=== PATIENT | male | born 1965 | race Caucasian/White ===

== ENCOUNTER 2018-04-13 14:47 | Inpatient (IN) | payer OTHER ==
--- NOTE | 2018-04-13 16:20 | PN ---
[facility] Progress Note Note: patient stated that he is in suboxone maintenance program x year on 8-2 mg tid last dose early today patient is on prescription klonopin monthly taking klonopin po daily patient wants to be detoxed off from alcohol that drinking alcohol becomes out of control patient wants to return to suboxone program and klonopin prescription for anxiety
[2018-04-13 19:09] VITALS: BMI 25.9
[2018-04-13] MEDS ORDERED: MELATONIN 5 MG TABLETS PO PRN (22:00)
--- NOTE | 2018-04-13 22:53 | HP ---
CIWA Score - CIWA Score Nausea/Vomitin Muscle Tremors: 2 Anxiety: 3 Agitation: 4-Moderately Restless Paroxysmal Sweats: 2 Orientation: 0-Oriented Tacttile Disturbances: 1-Very Mild Itch/Numbness Auditory Disturbances: 1-Very Mild Visual Disturbances: 0-None Headache: 2-Mild CIWA-Ar Total Score: 18 Admission ROS S - HPI Chief Complaint: alcohol withdrawal symptoms Allergies/Adverse Reactions: Allergies Allergy/AdvReac Type Severity Reaction Status Date / Time Fish Containing Products Allergy Intermediate Hives Verified 04/13/18 19:33 FISH Allergy Intermediate Hives Uncoded 04/13/18 19:33 History of Present Illness: 52 yo male with hx of alcohol, heroin and cocaine dependence is here seeking alcohol detox. Reports currently linked to [facility] on Suboxone 8mg qd maintenance. Reports hx of anxiety and depression. Denies suicidal / homicidal ideation or hx of suicide attempt. Longest period of time one year. Reference #: [id number] Others' Prescriptions Patient Name: Thomas Sykes Date: 1965 Address: [address] [place] [address] Sex: Male Rx Written Rx Dispensed Drug Quantity Days Supply Prescriber Name 04/11/2018 04/12/2018 dextroamp-amphetamin 10 mg tab 60 30 Ashley Carvajal NP 04/11/2018 04/11/2018 clonazepam 1 mg tablet 60 30 Ashley Carvajal NP 03/25/2018 04/04/2018 suboxone 8 mg-2 mg sl film 90 30 Christy Montana NP 03/14/2018 03/14/2018 dextroamp-amphetamin 10 mg tab 60 30 Ashley Carvajal NP 03/01/2018 03/08/2018 suboxone 8 mg-2 mg sl film 90 30 Christy Montana NP 03/04/2018 03/08/2018 clonazepam 1 mg tablet 60 30 Ashley Carvajal NP 01/31/2018 01/31/2018 suboxone 8 mg-2 mg sl film 90 30 SwiChristy tyler NP 01/31/2018 01/31/2018 clonazepam 1 mg tablet 60 30 Ashley Carvajal [employer] Patient Name: Thomas Sykes Date: 1965 Address: [address] [place] [address] Sex: Male Rx Written Rx Dispensed Drug Quantity Days Supply Prescriber Name 03/02/2018 03/02/2018 chlordiazepoxide 10 mg capsule 36 4 Jacob Whitt MD Patient Name: Thomas Sykes Date: 1965 Address: [address] [facility] [address] [place] [address] Sex: Male Rx Written Rx Dispensed Drug Quantity Days Supply Prescriber Name 12/28/2017 12/28/2017 suboxone 8 mg-2 mg sl film 90 30 Christy Montana [employer] 12/10/2017 12/10/2017 clonazepam 1 mg tablet 60 30 Ashley Carvajal [employer] 11/18/2017 11/18/2017 suboxone 8 mg-2 mg sl film 42 14 Lamonte Arora) 09/14/2017 09/14/2017 suboxone 8 mg-2 mg sl film 21 7 Lamonte Arora) 06/30/2017 07/01/2017 suboxone 8 mg-2 mg sl film 60 30 Lamonte Arora) 06/02/2017 06/02/2017 suboxone 8 mg-2 mg sl film 60 30 Christy Montana [employer] 05/05/2017 05/05/2017 suboxone 8 mg-2 mg sl film 60 30 Lamonte Arora) Patient Name: Thomas Sykes Date: 1965 Address: [address] [place] [address] Sex: Male Rx Written Rx Dispensed Drug Quantity Days Supply Prescriber Name 11/17/2017 11/19/2017 oxycodone-acetaminophen 5-325 mg tab 12 3 Vincenzo Avalos (DO) Exam Limitations: No Limitations - Ebola screening Have you traveled outside of the country in the last 21 days: No (N) Have you had contact with anyone from an Ebola affected area: No Have you been sick,other than usual withdrawal symptoms: No Do you have a fever: No - Review of Systems Constitutional: Chills, Loss of Appetite, Changes in sleep, Unintentional Wgt. Loss EENT: reports: No Symptoms Reported Respiratory: reports: No Symptoms reported Cardiac: reports: No Symptoms Reported GI: reports: Diarrhea, Nausea, Poor Appetite, Vomiting Musculoskeletal: reports: Back Pain, Joint Pain Integumentary: reports: No Symptoms Reported Neuro: reports: Headache Endocrine: reports: No Symptoms Reported Hematology: reports: No Symptoms Reported Psychiatric: reports: Orientated x3, Agitated, Anxious Other Systems: Reviewed and Negative Patient History - Patient Medical History Hx Anemia: No Hx Asthma: No Hx Chronic Obstructive Pulmonary Disease (COPD): No Hx Cancer: No Hx Cardiac Disorders: No Hx Congestive Heart Failure: No Hx Hypertension: No Hx Hypercholesterolemia: No Hx Pacemaker: No HX Cerebrovascular Accident: No Hx Seizures: No Hx Dementia: No Hx Diabetes: No Hx Gastrointestinal Disorders: No Hx Genitourinary Disorders: No Hx Sexually Transmitted Disorders: No Hx Renal Disease (ESRD): No Hx Thyroid Disease: No Hx Human Immunodeficiency Virus (HIV): No (last tested one year ago ) Hx Hepatitis C: No Hx Depression: Yes Hx Suicide Attempt: No Hx Bipolar Disorder: No Hx Schizophrenia: No - Patient Surgical History Past Surgical History: No Hx Neurologic Surgery: No Hx Cataract Extraction: No Hx Cardiac Surgery: No Hx Lung Surgery: No Hx Breast Surgery: No Hx Breast Biopsy: No Hx Abdominal Surgery: No Hx Appendectomy: No Hx Cholecystectomy: No Hx Genitourinary Surgery: No Hx Section: No Hx Orthopedic Surgery: No Anesthesia Reaction: No - PPD History Previous Implant?: No Documented Results: Negative w/o proof Implanted On Prior R Admission?: No PPD to be Administered?: Yes - Smoking Cessation Smoking history: Current every day smoker Have you smoked in the past 12 months: Yes Aproximately how many cigarettes per day: 20 Hx Chewing Tobacco Use: No Initiated information on smoking cessation: Yes 'Breaking Loose' booklet given: 04/13/18 - Substance & Tx. History Hx Alcohol Use: Yes Hx Substance Use: Yes Substance Use Type: Alcohol, Cocaine, Opiates Hx Substance Use Treatment: Yes (Laura Audie 1 year ago ) - Substances Abused Alcohol Route: Oral Frequency: Daily Amount used: 1pt vodka Age of first use: 17 Date of Last Use: 04/13/18 Heroin Route: Inhalation Frequency: Daily Amount used: 5bags Age of first use: 29 Date of Last Use: 04/13/18 Cocaine Route: Smoking Frequency: Daily Amount used: 5bags Age of first use: 20 Date of Last Use: 04/13/18 Family Disease History - Family Disease History Family History: Denies Admission Physical Exam [facility] - Vital Signs Vital Signs: Vital Signs - 24 hr 04/13/18 19:08 Temperature 97.7 F Pulse Rate 83 Respiratory 18 Rate Blood Pressure 115/72 - Physical General Appearance: Yes: Disheveled, Mild Distress, Irritable, Anxious HEENTM: Yes: Hearing grossly Normal, Normal ENT Inspection, Normocephalic, Normal Voice, TONY, Pharynx Normal, Tm's normal Respiratory: Yes: Chest Non-Tender, Lungs Clear, Normal Breath Sounds, No Respiratory Distress, No Accessory Muscle Use Neck: Yes: Within Normal Limits Breast: Yes: Breast Exam Deferred Cardiology: Yes: Regular Rhythm, Regular Rate Abdominal: Yes: Normal Bowel Sounds, Non Tender, Flat Genitourinary: Yes: Within Normal Limits Back: Yes: Normal Inspection Musculoskeletal: Yes: full range of Motion, Gait Steady, Pelvis Stable Extremities: Yes: Normal Capillary Refill, Normal Inspection, Normal Range of Motion, Non-Tender Neurological: Yes: wash tank tender II-XII NML intact, Fully Oriented, Motor Strength 5/5, Depressed Affect Integumentary: Yes: Normal Color, Warm, Diaphoresis Lymphatic: Yes: Within Normal Limits - Diagnostic (1) Opioid dependence on agonist therapy Current Visit: Yes Status: Chronic Comment: On Suboxone 8mg TID (2) Cocaine dependence Current Visit: Yes Status: Acute Qualifiers: Substance use status: uncomplicated Qualified Code(s): F14.20 - Cocaine dependence, uncomplicated (3) Anxious mood Current Visit: Yes Status: Acute (4) Alcohol dependence with withdrawal Current Visit: Yes Status: Acute Qualifiers: Complication of substance-induced condition: uncomplicated Qualified Code(s ): F10.230 - Alcohol dependence with withdrawal, uncomplicated Cleared for Admission [facility] - Detox or Rehab [facility] Level of Care: Medically Managed Detox Regimen/Protocol: Librium [facility] Breath Alcohol Content Breath Alcohol Content: 0 Urine Drug Screen - Results Drug Screen Negative: No Urine Drug Screen Results: GALDINO-Cocaine, OPI-Opiates
[2018-04-13] MEDS ORDERED: MAGNESIUM HYDROX 2400MG/30ML ORAL SUSPENSION 30 ML CUP PO PRN (22:59)
[2018-04-13] MEDS ORDERED: MAG HYDROX/AL HYDROX/SIMETH 30 ML UNIT-DOSE CUP PO PRN (22:59)
[2018-04-13] MEDS ORDERED: NICOTINE POLACRILEX 2 MG GUM BC PRN (22:59)
[2018-04-13] MEDS ORDERED: hydrOXYzine PAMOATE 50 MG CAPSULE (FP) PO PRN (22:59)
[2018-04-13] MEDS ORDERED: IBUPROFEN 400 MG TABLET (FP) PO PRN (22:59)
[2018-04-13] MEDS ORDERED: MENTHOL/PHENOL 1 EACH UD MM PRN (22:59)
[2018-04-13] MEDS ORDERED: MAGNESIUM CITRATE 300 ML BOTTLE PO PRN (22:59)
[2018-04-13] MEDS ORDERED: ACETAMINOPHEN 325 MG TABLET (FP) PO PRN (22:59)
[2018-04-13] MEDS ORDERED: guaiFENesin/D-METHORPHAN HB 10 ML UNIT-DOSE CUPS PO PRN (22:59)
[2018-04-13] MEDS ORDERED: P-EPHED 60MG/TRIPROLIDI 2.5MG TABLET PO PRN (22:59)
[2018-04-13] MEDS ORDERED: LOPERAMIDE HCL 2 MG CAPSULE PO PRN (22:59)
[2018-04-13] MEDS: chlordiazePOXIDE HCL 25 MG CAPSULE PO SCH (23:27)
[2018-04-14 02:16] LABS: URINE APPEARANCE SLCLOUDY; URINE BILIRUBIN NEGATIVE (<2.0 mg/dL); URINE COLOR YELLOW; URINE GLUCOSE (UA) NEGATIVE (NEGATIVE); URINE KETONE NEGATIVE (NEGATIVE); URINE NITRITE NEGATIVE (NEGATIVE); URINE PROTEIN NEGATIVE (NEGATIVE); URINE UROBILINOGEN NEGATIVE mg/dL (0.2-1.0)
[2018-04-14 02:37] LABS: URINE LEUK ESTERASE 1+ (NEGATIVE)
[2018-04-14 02:41] LABS: URINE BACTERIA MODERATE /hpf (NONE SEEN); URINE HYALINE CAST 1 /lpf; URINE MUCUS RARE
[2018-04-14] MEDS: chlordiazePOXIDE HCL 25 MG CAPSULE PO SCH ×4 (06:29→22:31)
[2018-04-14] MEDS: BUPRENORPHINE/NALOXONE 8 MG/2 MG FILM PACKET SL SCH ×3 (07:49→22:31)
[2018-04-14 10:13] LABS: HEMATOCRIT 42.2 % (35.4-49); HEMOGLOBIN 14.2 GM/dL (11.7-16.9); MCHC 33.7 g/dl (32.0-35.9); MEAN CELL VOLUME 86.1 fl (80-96); MEAN PLT VOLUME 7.4 fl (7.5-11.1); PLATELET COUNT 258 K/MM3 (134-434); RDW 14.3 % (11.9-15.9); WHITE BLOOD COUNT 5.4 K/mm3 (4.0-10.0)
[2018-04-14 10:55] LABS: CHLORIDE 110 mmol/L (98-107); POTASSIUM 3.9 mmol/L (3.5-5.1); SODIUM 145 mmol/L (136-145)
[2018-04-14 11:29] LABS: ALBUMIN 3.1 g/dl (3.4-5.0); ALK PHOS 103 U/L (45-117); ANION GAP 9 (8-16); BILIRUBIN,TOTAL 0.4 mg/dL (0.2-1.0); BLOOD UREA NITROGEN 25 mg/dL (7-18); CALCIUM 8.5 mg/dL (8.5-10.1); CO2 26 mmol/L (21-32); CREATININE 1.1 mg/dL (0.7-1.3); GLUCOSE,RANDOM 74 mg/dL (74-106); SGOT/AST 17 U/L (15-37); SGPT/ALT 22 U/L (12-78); TOT PROT 5.7 g/dl (6.4-8.2)
[2018-04-14] MEDS: PRENATAL VITAMINS W/ FOLIC ACID TABLET (FP) PO SCH (12:03)
[2018-04-14] MEDS: NICOTINE 21 MG/24 HOURS TOPICAL PATCH TD SCH (12:03)
[2018-04-14] MEDS: chlordiazePOXIDE HCL 25 MG CAPSULE PO PRN ×2 (12:40→19:51)
--- NOTE | 2018-04-14 13:03 | PN ---
[facility] CIWA - CIWA Score Nausea/Vomitin-No Nausea/No Vomiting Muscle Tremors: 3 Anxiety: 3 Agitation: 1-Slight > Activity Paroxysmal Sweats: 3 Orientation: 0-Oriented Tacttile Disturbances: 3-Moderate Itch/Numb/Burn Auditory Disturbances: 1-Very Mild Visual Disturbances: 2-Mild Sensitivity Headache: 0-None Present CIWA-Ar Total Score: 16 B[facility] Progress Note (SOAP) Subjective: Chills, Fatigue, Sweating, Interrupted Sleep, Tremors. Objective: PATIENT A & O X 3, OBSERVED AMBULATING ON UNIT. NO ACUTE DISTRESS. 04/14/18 13:01 Vital Signs Temperature 97.3 F L 04/14/18 10:18 Pulse Rate 54 L 04/14/18 10:18 Respiratory Rate 16 04/14/18 10:18 Blood Pressure 100/61 04/14/18 10:18 O2 Sat by Pulse Oximetry (%) Laboratory Tests 04/13/18 04/14/18 04/14/18 22:36 07:30 07:30 WBC 5.4 RBC 4.90 Hgb 14.2 Hct 42.2 MCV 86.1 MCH 29.0 MCHC 33.7 RDW 14.3 Plt Count 258 MPV 7.4 L Sodium Potassium Chloride Carbon Dioxide Anion Gap BUN Creatinine Creat Clearance w eGFR Random Glucose Calcium Total Bilirubin AST ALT Alkaline Phosphatase Total Protein Albumin Urine Color Yellow Urine Appearance Slcloudy Urine pH 5.0 Ur Specific [place] 1.020 Urine Protein Negative Urine Glucose (UA) Negative Urine Ketones Negative Urine Blood 2+ H Urine Nitrite Negative Urine Bilirubin Negative Urine Urobilinogen Negative Ur Leukocyte Esterase 1+ H Urine WBC (Auto) 28 Urine RBC (Auto) 88 Urine Bacteria Moderate Hyaline Casts 1 Urine Mucus Rare RPR Titer HIV 1&2 Antibody Screen Negative HIV P24 Antigen Negative 04/14/18 04/14/18 07:30 07:30 WBC RBC Hgb Hct MCV MCH MCHC RDW Plt Count MPV Sodium 145 Potassium 3.9 Chloride 110 H Carbon Dioxide 26 Anion Gap 9 BUN 25 H Creatinine 1.1 Creat Clearance w eGFR > 60 Random Glucose 74 Calcium 8.5 Total Bilirubin 0.4 AST 17 ALT 22 Alkaline Phosphatase 103 Total Protein 5.7 L Albumin 3.1 L Urine Color Urine Appearance Urine pH Ur Specific [place] Urine Protein Urine Glucose (UA) Urine Ketones Urine Blood Urine Nitrite Urine Bilirubin Urine Urobilinogen Ur Leukocyte Esterase Urine WBC (Auto) Urine RBC (Auto) Urine Bacteria Hyaline Casts Urine Mucus RPR Titer Nonreactive HIV 1&2 Antibody Screen HIV P24 Antigen LABS NOTED. Assessment: 04/14/18 13:01 WITHDRAWAL SYMPTOMS. Plan: CONTINUE DETOX. INCREASE DAILY PO FLUID INTAKE. REPEAT UA FOR ADMISSION UA ABNORMALITIES.
--- NOTE | 2018-04-14 14:26 | EKG ---
Test Reason : Blood Pressure : / mmHG Vent. Rate : 065 BPM Atrial Rate : 065 BPM P-R Int : 138 ms QRS Dur : 090 ms QT Int : 442 ms P-R-T Axes : 070 040 017 degrees QTc Int : 459 ms NORMAL SINUS RHYTHM NORMAL ECG NO PREVIOUS ECGS AVAILABLE Confirmed by JOVITA GÓMEZ MD ([id number]) on 04/14/2018 2:26:24 PM Referred By: Confirmed By:JOVITA GÓMEZ MD
--- NOTE | 2018-04-14 15:10 | CONSULT ---
[facility] Psychiatric Consult - Data Date of interview: 04/14/18 Admission source: [facility] Identifying data: Patient is a 52 year old single male, without kids, unemployed (denies receiving financial assistance) and currently homeless. This is patient's first admission to detox at [facility]. Pt. admitted to for alcohol and opiate dependence. Substance Abuse History: Smoking Cessation. Smoking history: Current every day smoker. Have you smoked in the past 12 months: Yes. Aproximately how many cigarettes per day: 20. Hx Chewing Tobacco Use: No. Initiated information on smoking cessation: Yes. 'Breaking Loose' booklet given: 04/13/18. - Substance & Tx. History. Hx Alcohol Use: Yes. Hx Substance Use: Yes. Substance Use Type : Alcohol, Cocaine, Opiates. Hx Substance Use Treatment: Yes (Laura Bronson 1 year ago ). - Substances Abused. Alcohol. Route: Oral. Frequency: Daily. Amount used: 1pt vodka. Age of first use: 17. Date of Last Use: 04/13/18. * * Heroin. Route: Inhalation. Frequency: Daily. Amount used: 5bags. Age of first use: 29. Date of Last Use: 04/13/18. Cocaine. Route: Smoking. Frequency: Daily. Amount used: 5bags. Age of first use: 20. Date of Last Use : 04/13/18 Medical History: Denies. Psychiatric History: Patient denies h/o psychiatric hospitalization, outpatient care, and suicide attempt. Physical/Sexual Abuse/Trauma History: Denies. Mental Status Exam - Mental Status Exam Alert and Oriented to: Time, Place, Person Cognitive Function: Good Patient Appearance: Well Groomed Mood: Withdrawn Affect: Mood Congruent Patient Behavior: Fatigued, Asleep (Patient to be awaken and complete interview. ) Speech Pattern: Appropriate Voice Loudness: Moderately Soft/Quiet Thought Process: Intact, Goal Oriented Thought Disorder: Not Present Hallucinations: Denies Suicidal Ideation: Denies Homicidal Ideation: Denies Insight/Judgement: Poor Sleep: Fair Appetite: Good Muscle strength/Tone: Normal Gait/Station: Normal Psychiatric Findings - Problem List ([place] 1, 2,3) (1) Alcohol dependence with withdrawal Current Visit: Yes Status: Acute Qualifiers: Complication of substance-induced condition: uncomplicated Qualified Code(s ): F10.230 - Alcohol dependence with withdrawal, uncomplicated (2) Cocaine dependence Current Visit: Yes Status: Acute Qualifiers: Substance use status: uncomplicated Qualified Code(s): F14.20 - Cocaine dependence, uncomplicated (3) Opioid dependence on agonist therapy Current Visit: Yes Status: Chronic Comment: On Suboxone 8mg TID - Initial Treatment Plan Initial Treatment Plan: Psychoeducation provided. Detoxification in progress. Observation.
[2018-04-14] MEDS ORDERED: THIAMINE HCL 100 MG TABLET (FP) PO SCH (22:00)
[2018-04-15] MEDS: chlordiazePOXIDE HCL 25 MG CAPSULE PO SCH ×2 (07:22→10:28)
[2018-04-15] MEDS: BUPRENORPHINE/NALOXONE 8 MG/2 MG FILM PACKET SL SCH (07:24)
[2018-04-15 09:21] VITALS: BP 103/59; PULSE 63; TEMP 97.8
[2018-04-15] MEDS: NICOTINE 21 MG/24 HOURS TOPICAL PATCH TD SCH (10:28)
[2018-04-15] MEDS: PRENATAL VITAMINS W/ FOLIC ACID TABLET (FP) PO SCH (10:28)
--- NOTE | 2018-04-15 16:34 | PN ---
[facility] CIWA - CIWA Score Nausea/Vomitin-No Nausea/No Vomiting Muscle Tremors: 2 Anxiety: 4-Mod. Anxious/Guarded Agitation: 4-Moderately Restless Paroxysmal Sweats: 3 Orientation: 0-Oriented Tacttile Disturbances: 2-Mild Itch/Numbness/Burn Auditory Disturbances: 0-None Visual Disturbances: 0-None Headache: 0-None Present CIWA-Ar Total Score: 15 BHS Progress Note (SOAP) Subjective: Sweating, Fatigue, Anxious, Tremors. Objective: PATIENT A & O X 3, OBSERVED AMBULATING ON UNIT. NO ACUTE DISTRESS. 04/15/18 16:33 Vital Signs Temperature 97.8 F 04/15/18 09:20 Pulse Rate 63 04/15/18 09:20 Respiratory Rate 18 04/15/18 09:20 Blood Pressure 103/59 04/15/18 09:20 O2 Sat by Pulse Oximetry (%) Laboratory Tests 04/13/18 04/14/18 04/14/18 22:36 07:30 07:30 WBC 5.4 RBC 4.90 Hgb 14.2 Hct 42.2 MCV 86.1 MCH 29.0 MCHC 33.7 RDW 14.3 Plt Count 258 MPV 7.4 L Sodium Potassium Chloride Carbon Dioxide Anion Gap BUN Creatinine Creat Clearance w eGFR Random Glucose Calcium Total Bilirubin AST ALT Alkaline Phosphatase Total Protein Albumin Urine Color Yellow Urine Appearance Slcloudy Urine pH 5.0 Ur Specific [place] 1.020 Urine Protein Negative Urine Glucose (UA) Negative Urine Ketones Negative Urine Blood 2+ H Urine Nitrite Negative Urine Bilirubin Negative Urine Urobilinogen Negative Ur Leukocyte Esterase 1+ H Urine WBC (Auto) 28 Urine RBC (Auto) 88 Urine Bacteria Moderate Hyaline Casts 1 Urine Mucus Rare RPR Titer HIV 1&2 Antibody Screen Negative HIV P24 Antigen Negative 04/14/18 04/14/18 07:30 07:30 WBC RBC Hgb Hct MCV MCH MCHC RDW Plt Count MPV Sodium 145 Potassium 3.9 Chloride 110 H Carbon Dioxide 26 Anion Gap 9 BUN 25 H Creatinine 1.1 Creat Clearance w eGFR > 60 Random Glucose 74 Calcium 8.5 Total Bilirubin 0.4 AST 17 ALT 22 Alkaline Phosphatase 103 Total Protein 5.7 L Albumin 3.1 L Urine Color Urine Appearance Urine pH Ur Specific [place] Urine Protein Urine Glucose (UA) Urine Ketones Urine Blood Urine Nitrite Urine Bilirubin Urine Urobilinogen Ur Leukocyte Esterase Urine WBC (Auto) Urine RBC (Auto) Urine Bacteria Hyaline Casts Urine Mucus RPR Titer Nonreactive HIV 1&2 Antibody Screen HIV P24 Antigen LABS NOTED. Assessment: 04/15/18 16:34 WITHDRAWAL SYMPTOMS. Plan: CONTINUE DETOX.
--- NOTE | 2018-04-15 17:06 | DS ---
[facility] Detox Discharge Summary Admission Date: 04/13/18 Discharge Date: 04/15/18 - History Present History: Alcohol Dependence, Cocaine Dependence, Opioid Dependence Additional Comments: PATIENT DOES NOT WISH TO STAY TO COMPLETE DETOX REGIMEN. RISKS OF LEAVING DETOX UNIT AGAINST MEDICAL ADVICE AND PRIOR TO COMPLETION OF DETOX REGIMEN EXPLAINED TO PATIENT. PATIENT ADVISED TO GO IMMEDIATELY TO NEAREST ER SHOULD ANY INTOLERABLE DETOX SYMPTOMS DEVELOP AT ANY TIME. PATIENT LEFT DETOX UNIT IN STABLE MEDICAL CONDITION. Pertinent Past History: Anxiety, History of Suboxone Maintenance Therapy. - Physical Exam Results Vital Signs: Vital Signs Temperature 97.8 F 04/15/18 09:20 Pulse Rate 63 04/15/18 09:20 Respiratory Rate 18 04/15/18 09:20 Blood Pressure 103/59 04/15/18 09:20 O2 Sat by Pulse Oximetry (%) Pertinent Admission Physical Exam Findings: WITHDRAWAL SYMPTOMS. Laboratory Tests 04/13/18 04/14/18 04/14/18 22:36 07:30 07:30 WBC 5.4 RBC 4.90 Hgb 14.2 Hct 42.2 MCV 86.1 MCH 29.0 MCHC 33.7 RDW 14.3 Plt Count 258 MPV 7.4 L Sodium Potassium Chloride Carbon Dioxide Anion Gap BUN Creatinine Creat Clearance w eGFR Random Glucose Calcium Total Bilirubin AST ALT Alkaline Phosphatase Total Protein Albumin Urine Color Yellow Urine Appearance Slcloudy Urine pH 5.0 Ur Specific [place] 1.020 Urine Protein Negative Urine Glucose (UA) Negative Urine Ketones Negative Urine Blood 2+ H Urine Nitrite Negative Urine Bilirubin Negative Urine Urobilinogen Negative Ur Leukocyte Esterase 1+ H Urine WBC (Auto) 28 Urine RBC (Auto) 88 Urine Bacteria Moderate Hyaline Casts 1 Urine Mucus Rare RPR Titer HIV 1&2 Antibody Screen Negative HIV P24 Antigen Negative 04/14/18 04/14/18 07:30 07:30 WBC RBC Hgb Hct MCV MCH MCHC RDW Plt Count MPV Sodium 145 Potassium 3.9 Chloride 110 H Carbon Dioxide 26 Anion Gap 9 BUN 25 H Creatinine 1.1 Creat Clearance w eGFR > 60 Random Glucose 74 Calcium 8.5 Total Bilirubin 0.4 AST 17 ALT 22 Alkaline Phosphatase 103 Total Protein 5.7 L Albumin 3.1 L Urine Color Urine Appearance Urine pH Ur Specific [place] Urine Protein Urine Glucose (UA) Urine Ketones Urine Blood Urine Nitrite Urine Bilirubin Urine Urobilinogen Ur Leukocyte Esterase Urine WBC (Auto) Urine RBC (Auto) Urine Bacteria Hyaline Casts Urine Mucus RPR Titer Nonreactive HIV 1&2 Antibody Screen HIV P24 Antigen LABS NOTED. - Treatment Hospital Course: Detoxed Safely - Diagnosis (1) Alcohol dependence with withdrawal Status: Acute Qualifiers: Complication of substance-induced condition: uncomplicated Qualified Code(s ): F10.230 - Alcohol dependence with withdrawal, uncomplicated (2) Anxious mood Status: Acute (3) Cocaine dependence Status: Acute Qualifiers: Substance use status: uncomplicated Qualified Code(s): F14.20 - Cocaine dependence, uncomplicated (4) Opioid dependence on agonist therapy Status: Chronic - AMA Did Patient Leave Against Medical Advice: Yes (PATIENT DID NOT WISH TO REMAIN TO COMPLETE DETOX REGIMEN.)
[2018-04-15] MEDS ORDERED: chlordiazePOXIDE 5 MG CAPSULE PO SCH (23:00)
[2018-04-16] MEDS ORDERED: chlordiazePOXIDE HCL 10 MG CAPSULE PO SCH (23:00)
== END 2018-04-15 11:59 | disposition left against medical advice (07) | DRG 770 ==
LOC: YASAS 14:47 → Y6N 19:15 → Y3N 19:47
PROVIDERS: ADMIT Surgery; ATTEND Surgery
PROC: HZ2ZZZZ Detoxification Services for Substance Abuse Treatment (ICD-10-PCS; principal; 2018-04-13)
DX: F10.230 Alcohol dependence with withdrawal, uncomplicated (principal); F11.20 Opioid dependence, uncomplicated; F14.20 Cocaine dependence, uncomplicated; F32.9 Major depressive disorder, single episode, unspecified
CPT/HCPCS: 36415; 80053; 81003; 81015; 85027; 86593; 87389; 93005; 93010

== ENCOUNTER 2019-01-25 12:39 | Inpatient (IN) | payer OTHER ==
[2019-01-25 14:07] VITALS: BMI 27.3
--- NOTE | 2019-01-25 14:51 | HP ---
COWS - Scale Resting Pulse: 0= [place] 80 or Below Sweatin= Chills/Flushing Restless Observation: 3= Extraneous Movement Pupil Size: 1= Pupils >than Normal Bone or Joint Aches: 2= Severe Diffuse Aches Runny Nose/ Eye Tearin= Runny Nose/Eyes GI Upset > 30mins: 2= Nausea/Diarrhea Tremor Observation: 2= Slight Tremor Visible Yawning Observation: 2= >3x During Session Anxiety or Irritability: 2=Irritable/Anxious Goose Flesh Skin: 0=Smooth Skin COWS Score: 17 CIWA Score Nausea/Vomitin Muscle Tremors: 3 Anxiety: 3 Agitation: 3 Paroxysmal Sweats: 1-Minimal Palms Moist Orientation: 0-Oriented Tacttile Disturbances: 1-Very Mild Itch/Numbness Auditory Disturbances: 1-Very Mild Visual Disturbances: 0-None Headache: 2-Mild CIWA-Ar Total Score: 16 - Admission Criteria OASAS Guidelines: Admission for Medically Managed Detox: Requires at least one of the followin. CIWA greater than 12 2. Seizures within the past 24 hours 3. Delirium tremens within the past 24 hours 4. Hallucinations within the past 24 hours 5. Acute intervention needed for co occurring medical disorder 6. Acute intervention needed for co occurring psychiatric disorder 7. Severe withdrawal that cannot be handled at a lower level of care (continued vomiting, continued diarrhea, abnormal vital signs) requiring intravenous medication and/or fluids 8. Admission ROS S - [facility] Chief Complaint: I need help to stop using heroin,alcohol,xanax,cocaine,street methadone Allergies/Adverse Reactions: Allergies Allergy/AdvReac Type Severity Reaction Status Date / Time Fish Containing Products Allergy Intermediate Hives Verified 01/25/19 14:00 FISH Allergy Intermediate Hives Uncoded 01/25/19 14:00 History of Present Illness: this 53 years old male with heroin,alcohol,cocaine,xanax,street methadone, withdrawal symptom,need help for detox multiple admissions in detox but keep relapsing last treatment [facility] 04/13/18 to 04/15/18 not completed weight loss nicotine dependence 1 pack/day,does not want nicotine replacement syncope abrasion of right leg longest period of sobriety 3 years plan for rehab after detox Exam Limitations: No Limitations - Ebola screening Have you traveled outside of the country in the last 21 days: No (N) Have you had contact with anyone from an Ebola affected area: No Do you have a fever: No - Review of Systems Constitutional: Chills, Loss of Appetite, Malaise, Night Sweats, Changes in sleep, Unintentional Wgt. Loss EENT: reports: Tearing, Nose Congestion Respiratory: reports: No Symptoms reported Cardiac: reports: No Symptoms Reported GI: reports: Diarrhea, Nausea, Poor Appetite, Vomiting, Abdominal cramping : reports: No Symptoms Reported Musculoskeletal: reports: Back Pain, Joint Pain, Muscle Pain Integumentary: reports: Dryness Neuro: reports: Headache, Tremors Endocrine: reports: No Symptoms Reported Hematology: reports: No Symptoms Reported Psychiatric: reports: No Sypmtoms Reported, Judgement Intact, Mood/Affect Appropiate, Orientated x3 Other Systems: Reviewed and Negative Patient History - Patient Medical History Hx Anemia: No Hx Asthma: No Hx Chronic Obstructive Pulmonary Disease (COPD): No Hx Cancer: No Hx Cardiac Disorders: No Hx Congestive Heart Failure: No Hx Hypertension: No Hx Hypercholesterolemia: No Hx Pacemaker: No HX Cerebrovascular Accident: No Hx Seizures: No Hx Dementia: No Hx Diabetes: No Hx Gastrointestinal Disorders: No Hx Genitourinary Disorders: No Hx Sexually Transmitted Disorders: No Hx Renal Disease (ESRD): No Hx Thyroid Disease: No Hx Human Immunodeficiency Virus (HIV): No (last tested one year ago 2017) Hx Hepatitis C: No Hx Depression: Yes Hx Suicide Attempt: No Hx Bipolar Disorder: No Hx Schizophrenia: No Other Medical History: no suicidal,no homicidal - Patient Surgical History Past Surgical History: No Hx Neurologic Surgery: No Hx Cataract Extraction: No Hx Cardiac Surgery: No Hx Lung Surgery: No Hx Breast Surgery: No Hx Breast Biopsy: No Hx Abdominal Surgery: No Hx Appendectomy: No Hx Cholecystectomy: No Hx Genitourinary Surgery: No Hx Section: No Hx Orthopedic Surgery: No Anesthesia Reaction: No - PPD History Previous Implant?: Yes Documented Results: Negative w/proof Date: 04/15/18 Results: no reading PPD to be Administered?: Yes - Smoking Cessation Smoking history: Current every day smoker Have you smoked in the past 12 months: Yes Aproximately how many cigarettes per day: 20 Hx Chewing Tobacco Use: No Initiated information on smoking cessation: Yes 'Breaking Loose' booklet given: 01/25/19 - Substance & Tx. History Hx Alcohol Use: Yes Hx Substance Use: Yes Substance Use Type: Alcohol, Cocaine, Heroin, Tranquilizers Hx Substance Use Treatment: Yes ([facility] 04/13/18 to 04/15/18) - Substances abused Alcohol Substance route: Oral Frequency: Daily Amount used: 6 pk beer of 12 ozs Age of first use: 17 Date of last use: 01/24/19 Alprazolam (Xanax) Substance route: Oral Frequency: Daily Amount used: 2 sticks Age of first use: 29 Date of last use: 01/24/19 Benzodiazepine (Klonopin) Substance route: Oral Frequency: Daily Amount used: 4 mg Age of first use: 29 Date of last use: 01/24/19 Heroin Substance route: Inhalation Frequency: Daily Amount used: 8 bags Age of first use: 29 Date of last use: 01/24/19 Non-Rx Methadone Substance route: Oral Frequency: 3-6 times per week Amount used: 200 mg a week Age of first use: 53 Date of last use: 01/25/19 Crack Substance route: Smoking Frequency: Daily Amount used: 100$ Age of first use: 29 Date of last use: 01/24/19 Family Disease History - Family Disease History Family History: Denies Admission Physical Exam S - Vital Signs Vital Signs: Vital Signs - 24 hr 01/25/19 01/25/19 13:53 14:33 Temperature 96.6 F L 96.6 F L Pulse Rate 77 77 Respiratory 18 18 Rate Blood Pressure 134/88 134/88 - Physical General Appearance: Yes: Moderate Distress, Tremorous, Irritable, Sweating, Anxious HEENTM: Yes: Normal ENT Inspection, TONY, Pharynx Normal Respiratory: Yes: Lungs Clear, Normal Breath Sounds, No Respiratory Distress Neck: Yes: Within Normal Limits, Supple, Trachea in good position Breast: Yes: Within Normal Limits Cardiology: Yes: Within Normal Limits, Regular Rhythm, Regular Rate, S1, S2 Abdominal: Yes: Within Normal Limits, Normal Bowel Sounds, Non Tender, Flat Genitourinary: Yes: Within Normal Limits Back: Yes: Muscle Spasm Musculoskeletal: Yes: full range of Motion, Back pain, Joint Stiffness, Muscle Pain Extremities: Yes: Tremors Neurological: Yes: outbound telemarketer II-XII NML intact, Alert, Motor Strength 5/5 Integumentary: Yes: Dry Lymphatic: Yes: Within Normal Limits - Diagnostic (1) Opioid dependence with withdrawal Current Visit: Yes Status: Acute (2) Alcohol dependence with withdrawal Current Visit: No Status: Acute Qualifiers: Complication of substance-induced condition: uncomplicated Qualified Code(s ): F10.230 - Alcohol dependence with withdrawal, uncomplicated (3) Cocaine dependence Current Visit: No Status: Acute Qualifiers: Substance use status: uncomplicated Qualified Code(s): F14.20 - Cocaine dependence, uncomplicated (4) Uncomplicated sedative, hypnotic or anxiolytic withdrawal Current Visit: Yes Status: Acute (5) Nicotine dependence Current Visit: Yes Status: Acute (6) Methadone dependence Current Visit: Yes Status: Acute Cleared for Admission S - Detox or Rehab [facility] Level of Care: Medically Managed Detox Regimen/Protocol: Methadone/Valium Breathalyzer - Breathalyzer Breathalyzer: 0 Urine Drug Screen - Test Device Lot number: [id number] Expiration date: 08/26/20 - Control Is test valid?: Yes - Results Drug screen NEGATIVE: No Urine drug screen results: GALDINO-Cocaine, FEN-Fentanyl, MOP-Opiates, BAR- Barbiturates Inpatient Rehab Admission - Rehab Decision to Admit Inpatient rehab admission?: No
[2019-01-25] MEDS ORDERED: METHADONE HCL 10 MG TABLET (FOR DETOX USE ONLY) PO ONE ×2 (15:45→23:00)
[2019-01-25] MEDS: diazePAM 5 MG TABLET PO PRN ×2 (16:13→20:18)
[2019-01-25 17:10] LABS: HEMATOCRIT 40.5 % (35.4-49); HEMOGLOBIN 13.6 GM/dL (11.7-16.9); MCH 29.2 pg (25.7-33.7); MCHC 33.6 g/dl (32.0-35.9); MEAN CELL VOLUME 86.9 fl (80-96); MEAN PLT VOLUME 7.5 fl (7.5-11.1); PLATELET COUNT 272 K/MM3 (134-434); RBC 4.66 M/mm3 (4.00-5.60); RDW 14.2 % (11.9-15.9)
[2019-01-25 17:14] LABS: ALBUMIN 3.4 g/dl (3.4-5.0); ALK PHOS 111 U/L (45-117); ANION GAP 5 MMOL/L (8-16); BILIRUBIN,TOTAL 0.2 mg/dL (0.2-1); BLOOD UREA NITROGEN 13 mg/dL (7-18); CALCIUM 8.4 mg/dL (8.5-10.1); CHLORIDE 109 mmol/L (98-107); CO2 26 mmol/L (21-32); CREATININE 0.8 mg/dL (0.55-1.3); GLUCOSE,RANDOM 84 mg/dL (74-106); SGOT/AST 15 U/L (15-37); SGPT/ALT 22 U/L (13-61); SODIUM 140 mmol/L (136-145); TOT PROT 6.5 g/dl (6.4-8.2)
[2019-01-25] MEDS: diazePAM 5 MG TABLET PO SCH (22:27)
[2019-01-26] MEDS: diazePAM 5 MG TABLET PO SCH ×3 (05:06→22:07)
[2019-01-26] MEDS: diazePAM 5 MG TABLET PO PRN ×2 (07:41→17:01)
[2019-01-26] MEDS ORDERED: METHADONE HCL 10 MG TABLET (FOR DETOX USE ONLY) PO ONE (10:00)
[2019-01-26] MEDS ORDERED: hydrOXYzine PAMOATE 50 MG CAPSULE (FP) PO ONE ×2 (10:07→11:02)
--- NOTE | 2019-01-26 11:08 | PN ---
S CIWA - CIWA Score Nausea/Vomitin-Mild Nausea/No Vomiting Muscle Tremors: 3 Anxiety: 2 Agitation: 3 Paroxysmal Sweats: 1-Minimal Palms Moist Orientation: 2-Disoriented Date<2 days Tacttile Disturbances: 0-None Auditory Disturbances: 0-None Visual Disturbances: 0-None Headache: 1-Very Mild CIWA-Ar Total Score: 13 BHS COWS - Scale Resting Pulse: 0= [place] 80 or Below Sweatin= Chills/Flushing Restless Observation: 0= Sits Still Pupil Size: 0= Normal to Room Light Bone or Joint Aches: 1= Mild Discomfort Runny Nose/ Eye Tearin= Nasal Congestion GI Upset > 30mins: 1= Stomach Cramp Tremor Observation of Outstretched Hands: 2= Slight Tremor Visible Yawning Observation: 2= >3x During Session Anxiety or Irritability: 2=Irritable/Anxious Goose Flesh Skin: 3=Piloerection COWS Score: 13 S Progress Note (SOAP) Subjective: feeling anxiousness restlessness vistaril 50 mg po x 1 Objective: 01/26/19 11:08 Vital Signs Temperature 96.5 F L 01/26/19 09:19 Pulse Rate 69 01/26/19 09:19 Respiratory Rate 20 01/26/19 09:19 Blood Pressure 110/79 01/26/19 09:19 O2 Sat by Pulse Oximetry (%) Laboratory Last Values WBC 5.0 K/mm3 (4.0-10.0) 01/25/19 15:00 RBC 4.66 M/mm3 (4.00-5.60) 01/25/19 15:00 Hgb 13.6 GM/dL (11.7-16.9) 01/25/19 15:00 Hct 40.5 % (35.4-49) 01/25/19 15:00 MCV 86.9 fl (80-96) 01/25/19 15:00 MCH 29.2 pg (25.7-33.7) 01/25/19 15:00 MCHC 33.6 g/dl (32.0-35.9) 01/25/19 15:00 RDW 14.2 % (11.9-15.9) 01/25/19 15:00 Plt Count 272 K/MM3 (134-434) 01/25/19 15:00 MPV 7.5 fl (7.5-11.1) 01/25/19 15:00 Sodium 140 mmol/L (136-145) 01/25/19 15:00 Potassium 4.0 mmol/L (3.5-5.1) 01/25/19 15:00 Chloride 109 mmol/L (98-107) H 01/25/19 15:00 Carbon Dioxide 26 mmol/L (21-32) 01/25/19 15:00 Anion Gap 5 MMOL/L (8-16) L 01/25/19 15:00 BUN 13 mg/dL (7-18) 01/25/19 15:00 Creatinine 0.8 mg/dL (0.55-1.3) 01/25/19 15:00 Creat Clearance w eGFR 101.92 (>60) 01/25/19 15:00 Random Glucose 84 mg/dL (74-106) 01/25/19 15:00 Calcium 8.4 mg/dL (8.5-10.1) L 01/25/19 15:00 Total Bilirubin 0.2 mg/dL (0.2-1) 01/25/19 15:00 AST 15 U/L (15-37) 01/25/19 15:00 ALT 22 U/L (13-61) 01/25/19 15:00 Alkaline Phosphatase 111 U/L (45-117) 01/25/19 15:00 Total Protein 6.5 g/dl (6.4-8.2) 01/25/19 15:00 Albumin 3.4 g/dl (3.4-5.0) 01/25/19 15:00 RPR Titer Nonreactive (NONREACTIVE) 01/25/19 15:00 lab noted Assessment: 01/26/19 11:08 alcohol benzo opiate withdrawal sx Plan: continue detox
[2019-01-26] MEDS: cloNIDine HCL 0.1 MG TABLET PO PRN (22:07)
[2019-01-27] MEDS ORDERED: METHADONE HCL 10 MG TABLET (FOR DETOX USE ONLY) PO ONE (10:00)
[2019-01-27] MEDS: diazePAM 5 MG TABLET PO SCH ×2 (10:14→22:22)
[2019-01-27] MEDS: diazePAM 5 MG TABLET PO PRN ×2 (12:08→17:19)
[2019-01-27] MEDS: cloNIDine HCL 0.1 MG TABLET PO PRN (12:08)
--- NOTE | 2019-01-27 15:21 | PN ---
[facility] CIWA - CIWA Score Nausea/Vomitin-Mild Nausea/No Vomiting Muscle Tremors: 3 Anxiety: 4-Mod. Anxious/Guarded Agitation: 4-Moderately Restless Paroxysmal Sweats: 1-Minimal Palms Moist Orientation: 0-Oriented Tacttile Disturbances: 0-None Auditory Disturbances: 0-None Visual Disturbances: 0-None Headache: 1-Very Mild CIWA-Ar Total Score: 14 BHS COWS - Scale Resting Pulse: 1= [place] 81-100 Sweatin= Chills/Flushing Restless Observation: 1= Difficult to Sit Still Pupil Size: 1= Pupils >than Normal Bone or Joint Aches: 1= Mild Discomfort Runny Nose/ Eye Tearin= Nasal Congestion GI Upset > 30mins: 0= None Tremor Observation of Outstretched Hands: 1= Tremor [place], Not Seen Yawning Observation: 0= None Anxiety or Irritability: 1=Feels Anxious/Irritable Goose Flesh Skin: 0=Smooth Skin COWS Score: 8 S Progress Note (SOAP) Subjective: pt states still feeling anxiety on librium and methadone detox protocols, would like ot see for anxiety O: Vital Signs - 24 hr 01/26/19 01/26/19 01/27/19 17:14 21:43 00:30 Temperature 97.4 F L 97.4 F L Pulse Rate 61 69 Respiratory 18 18 18 Rate Blood Pressure 103/64 113/75 01/27/19 01/27/19 01/27/19 03:30 06:41 09:23 Temperature 97.5 F L 96.9 F L Pulse Rate 54 L 64 Respiratory 18 16 18 Rate Blood Pressure 93/58 L 103/86 01/27/19 13:38 Temperature 97 F L Pulse Rate 70 Respiratory 18 Rate Blood Pressure 104/67 Laboratory Tests 01/25/19 01/25/19 01/25/19 15:00 15:00 15:00 WBC 5.0 RBC 4.66 Hgb 13.6 Hct 40.5 MCV 86.9 MCH 29.2 MCHC 33.6 RDW 14.2 Plt Count 272 MPV 7.5 Sodium 140 Potassium 4.0 Chloride 109 H Carbon Dioxide 26 Anion Gap 5 L BUN 13 Creatinine 0.8 Creat Clearance w eGFR 101.92 Random Glucose 84 Calcium 8.4 L Total Bilirubin 0.2 AST 15 ALT 22 Alkaline Phosphatase 111 Total Protein 6.5 Albumin 3.4 RPR Titer Nonreactive a/p: continue librium/methadone detox prn meds for symptomatic treatment consult for anxiety
[2019-01-27] MEDS ORDERED: IBUPROFEN 400 MG TABLET (FP) PO PRN (15:36)
[2019-01-27] MEDS ORDERED: MELATONIN 5 MG TABLETS PO PRN (15:36)
[2019-01-27] MEDS ORDERED: ACETAMINOPHEN 325 MG TABLET (FP) PO PRN ×2 (15:36)
[2019-01-27] MEDS ORDERED: MAGNESIUM CITRATE 300 ML BOTTLE PO PRN (15:36)
[2019-01-27] MEDS ORDERED: MENTHOL/PHENOL 1 EACH UD MM PRN (15:36)
[2019-01-27] MEDS ORDERED: MAG HYDROX/AL HYDROX/SIMETH 30 ML UNIT-DOSE CUP PO PRN (15:36)
[2019-01-27] MEDS ORDERED: BISMUTH SUBSALICYLATE 262 MG/15 ML BTL PO PRN (15:36)
[2019-01-27] MEDS ORDERED: MAGNESIUM HYDROX 2400MG/30ML ORAL SUSPENSION 30 ML CUP PO PRN (15:36)
[2019-01-27] MEDS: hydrOXYzine PAMOATE 25 MG CAPSULE (FP) PO PRN (22:22)
[2019-01-27] MEDS: THIAMINE HCL 100 MG TABLET (FP) PO SCH (22:22)
[2019-01-28] MEDS: diazePAM 5 MG TABLET PO PRN ×2 (01:29→08:45)
[2019-01-28] MEDS: METHOCARBAMOL 500 MG TABLET PO PRN ×2 (01:29→23:10)
[2019-01-28] MEDS ORDERED: diazePAM 5 MG TABLET PO SCH (06:00)
[2019-01-28] MEDS ORDERED: METHADONE HCL 5 MG TABLET (FOR DETOX USE ONLY) ONE (08:34)
[2019-01-28] MEDS ORDERED: METHADONE HCL 10 MG TABLET (FOR DETOX USE ONLY) ONE (08:34)
[2019-01-28] MEDS: hydrOXYzine PAMOATE 25 MG CAPSULE (FP) PO PRN ×2 (08:45→23:10)
[2019-01-28] MEDS ORDERED: METHADONE (DETOX) 10 MG, METHADONE (DETOX) 5 MG PO ONE (10:00)
[2019-01-28] MEDS ORDERED: METHADONE HCL 10 MG TABLET (FOR DETOX USE ONLY) PO ONE (10:00)
[2019-01-28] MEDS: PRENATAL VITAMINS W/ FOLIC ACID TABLET (FP) PO SCH (10:31)
--- NOTE | 2019-01-28 11:50 | CONSULT ---
[facility] Psychiatric Consult - Data Date of interview: 01/28/19 Admission source: [facility] Identifying data: Readmission to [facility] for this 53 y/o male self- referred for detoxification (heroin, xanax, cocaine, street methadone). Examined at [address] [place] [address]. Patient is single, no dependents, homeless, unemployed and supported on welfare. Substance Abuse History: Confirmed by the patient in this session. Details are included in current [facility] report as follows : Smoking history: Current every day smoker. Have you smoked in the past 12 months: Yes. Aproximately how many cigarettes per day: 20. Hx Chewing Tobacco Use: No. Initiated information on smoking cessation: Yes. 'Breaking Loose' booklet given: 01/25/19. - Substance & Tx. History. Hx Alcohol Use: Yes. Hx Substance Use: Yes. Substance Use Type : Alcohol, Cocaine, Heroin, Tranquilizers. Hx Substance Use Treatment: Yes ( [facility] 04/13/18 to 04/15/18). - Substances abused. Alcohol. Substance route: Oral. Frequency: Daily. Amount used: 6 pk beer of 12 ozs. Age of first use: 17. Date of last use: 01/24/19. Alprazolam (Xanax). Substance route: Oral. Frequency: Daily. Amount used: 2 sticks. Age of first use: 29. Date of last use: 01/24/19. Benzodiazepine (Klonopin). Substance route: Oral. Frequency: Daily. Amount used: 4 mg. Age of first use: 29. Date of last use: 01/24/19. Heroin. Substance route: Inhalation. Frequency: Daily. Amount used: 8 bags. Age of first use: 29. Date of last use: 01/24/19. Non-Rx Methadone. Substance route: Oral. Frequency: 3-6 times per week. Amount used : 200 mg a week. Age of first use: 53. Date of last use: 01/25/19. Crack. Substance route: Smoking. Frequency: Daily. Amount used: 100$. Age of first use: 29. Date of last use: 01/24/19 Medical History: Bronchial asthma. Psychiatric History: Patient denies history of psychiatric hospitalizations. Mr Sykes states that he has been diagnosed with Anxiety Disorder and medicated with clonazepam in the past. Patient is known to [facility]. No history of suicide attempts. Physical/Sexual Abuse/Trauma History: Patient denies. Additional Comment: Urine drug screen results: GALDINO-Cocaine, FEN-Fentanyl, MOP- Opiates, BAR-Barbiturates. Noted. Mental Status Exam - Mental Status Exam Alert and Oriented to: Time, Place, Person Cognitive Function: Good Patient Appearance: Unkempt, Disheveled Mood: Nervous, Withdrawn Affect: Mood Congruent, Constricted Patient Behavior: Fatigued, Cooperative Speech Pattern: Clear, Appropriate Voice Loudness: Normal Thought Process: Goal Oriented Thought Disorder: Not Present Hallucinations: Denies Suicidal Ideation: Denies Homicidal Ideation: Denies Insight/Judgement: Poor Sleep: Poorly, Difficulty falling asleep Appetite: Good Muscle strength/Tone: Normal Gait/Station: Normal (not observed ; in bed through interview) Psychiatric Findings - Problem List ([place] 1, 2,3) (1) Alcohol dependence with withdrawal Current Visit: Yes Status: Acute Qualifiers: Complication of substance-induced condition: uncomplicated Qualified Code(s ): F10.230 - Alcohol dependence with withdrawal, uncomplicated (2) Uncomplicated sedative, hypnotic or anxiolytic withdrawal Current Visit: Yes Status: Acute (3) Opioid dependence with withdrawal Current Visit: Yes Status: Acute (4) Nicotine dependence Current Visit: Yes Status: Chronic (5) Cocaine dependence Current Visit: Yes Status: Chronic Qualifiers: Substance use status: uncomplicated Qualified Code(s): F14.20 - Cocaine dependence, uncomplicated (6) Substance induced mood disorder Current Visit: Yes Status: Chronic - Initial Treatment Plan Initial Treatment Plan: Psychoeducation. Sleep hygiene. Support. Detoxification. Insomnia is addressed with melatonin at bedtime (with patient's consent). AA/NA meetings. Observation.
--- NOTE | 2019-01-28 13:55 | PN ---
[facility] CIWA - CIWA Score Nausea/Vomitin-No Nausea/No Vomiting Muscle Tremors: 1-None Visible, but [place] Anxiety: 2 Agitation: 3 Paroxysmal Sweats: 1-Minimal Palms Moist Orientation: 0-Oriented Tacttile Disturbances: 0-None Auditory Disturbances: 0-None Visual Disturbances: 0-None Headache: 0-None Present CIWA-Ar Total Score: 7 S COWS - Scale Resting Pulse: 0= [place] 80 or Below Sweatin= Chills/Flushing Restless Observation: 3= Extraneous Movement Pupil Size: 0= Normal to Room Light Bone or Joint Aches: 1= Mild Discomfort Runny Nose/ Eye Tearin= None GI Upset > 30mins: 0= None Tremor Observation of Outstretched Hands: 0= None Yawning Observation: 0= None Anxiety or Irritability: 1=Feels Anxious/Irritable Goose Flesh Skin: 0=Smooth Skin COWS Score: 6 S Progress Note (SOAP) Subjective: PT IS ALERT O X 3. C/O SLIGHT ANXIETY. PT REPORTS DETOX PROCEEDING WELL WITH MEDS. Objective: 01/28/19 13:52 Vital Signs 01/28/19 01/28/19 01/28/19 06:17 09:26 13:22 Temperature 97.0 F L 97.0 F L 98.4 F Pulse Rate 55 L 74 66 Respiratory 18 18 18 Rate Blood Pressure 99/60 92/67 106/74 Laboratory Tests 01/25/19 01/25/19 01/25/19 15:00 15:00 15:00 WBC 5.0 RBC 4.66 Hgb 13.6 Hct 40.5 MCV 86.9 MCH 29.2 MCHC 33.6 RDW 14.2 Plt Count 272 MPV 7.5 Sodium 140 Potassium 4.0 Chloride 109 H Carbon Dioxide 26 Anion Gap 5 L BUN 13 Creatinine 0.8 Creat Clearance w eGFR 101.92 Random Glucose 84 Calcium 8.4 L Total Bilirubin 0.2 AST 15 ALT 22 Alkaline Phosphatase 111 Total Protein 6.5 Albumin 3.4 RPR Titer Nonreactive Assessment: 01/28/19 13:52 WITHDRAWAL SX Plan: CONTINUE DETOX INCREASE PO FLUIDS
[2019-01-28] MEDS: THIAMINE HCL 100 MG TABLET (FP) PO SCH (23:11)
[2019-01-29] MEDS ORDERED: METHADONE HCL 5 MG TABLET (FOR DETOX USE ONLY) PO ONE ×2 (06:00)
[2019-01-29] MEDS: PRENATAL VITAMINS W/ FOLIC ACID TABLET (FP) PO SCH (10:00)
[2019-01-29] MEDS: hydrOXYzine PAMOATE 25 MG CAPSULE (FP) PO PRN (10:00)
[2019-01-29] MEDS ORDERED: METHADONE HCL 10 MG TABLET (FOR DETOX USE ONLY) PO ONE (10:00)
[2019-01-29 13:29] VITALS: BP 99/68; PULSE 74; TEMP 96.7
--- NOTE | 2019-01-29 14:46 | PN ---
[facility] CIWA - CIWA Score Nausea/Vomitin-No Nausea/No Vomiting Muscle Tremors: 1-None Visible, but [place] Anxiety: 1-Mildly Anxious Agitation: 1-Slight > Activity Paroxysmal Sweats: No Perspiration Orientation: 0-Oriented Tacttile Disturbances: 0-None Auditory Disturbances: 0-None Visual Disturbances: 0-None Headache: 0-None Present CIWA-Ar Total Score: 3 S COWS - Scale Resting Pulse: 0= [place] 80 or Below Sweatin= Chills/Flushing Restless Observation: 0= Sits Still Pupil Size: 0= Normal to Room Light Bone or Joint Aches: 1= Mild Discomfort Runny Nose/ Eye Tearin= None GI Upset > 30mins: 0= None Tremor Observation of Outstretched Hands: 0= None Yawning Observation: 1= 1-2x During Session Anxiety or Irritability: 0= None Goose Flesh Skin: 0=Smooth Skin COWS Score: 3 S Progress Note (SOAP) Subjective: feeling better discuss aftercarew with staff wants to go to suboxone program Objective: 01/29/19 14:48 Vital Signs Temperature 96.7 F L 01/29/19 13:28 Pulse Rate 74 01/29/19 13:28 Respiratory Rate 18 01/29/19 13:28 Blood Pressure 99/68 01/29/19 13:28 O2 Sat by Pulse Oximetry (%) Laboratory Last Values WBC 5.0 K/mm3 (4.0-10.0) 01/25/19 15:00 RBC 4.66 M/mm3 (4.00-5.60) 01/25/19 15:00 Hgb 13.6 GM/dL (11.7-16.9) 01/25/19 15:00 Hct 40.5 % (35.4-49) 01/25/19 15:00 MCV 86.9 fl (80-96) 01/25/19 15:00 MCH 29.2 pg (25.7-33.7) 01/25/19 15:00 MCHC 33.6 g/dl (32.0-35.9) 01/25/19 15:00 RDW 14.2 % (11.9-15.9) 01/25/19 15:00 Plt Count 272 K/MM3 (134-434) 01/25/19 15:00 MPV 7.5 fl (7.5-11.1) 01/25/19 15:00 Sodium 140 mmol/L (136-145) 01/25/19 15:00 Potassium 4.0 mmol/L (3.5-5.1) 01/25/19 15:00 Chloride 109 mmol/L (98-107) H 01/25/19 15:00 Carbon Dioxide 26 mmol/L (21-32) 01/25/19 15:00 Anion Gap 5 MMOL/L (8-16) L 01/25/19 15:00 BUN 13 mg/dL (7-18) 01/25/19 15:00 Creatinine 0.8 mg/dL (0.55-1.3) 01/25/19 15:00 Creat Clearance w eGFR 101.92 (>60) 01/25/19 15:00 Random Glucose 84 mg/dL (74-106) 01/25/19 15:00 Calcium 8.4 mg/dL (8.5-10.1) L 01/25/19 15:00 Total Bilirubin 0.2 mg/dL (0.2-1) 01/25/19 15:00 AST 15 U/L (15-37) 01/25/19 15:00 ALT 22 U/L (13-61) 01/25/19 15:00 Alkaline Phosphatase 111 U/L (45-117) 01/25/19 15:00 Total Protein 6.5 g/dl (6.4-8.2) 01/25/19 15:00 Albumin 3.4 g/dl (3.4-5.0) 01/25/19 15:00 RPR Titer Nonreactive (NONREACTIVE) 01/25/19 15:00 lab noted Assessment: 01/29/19 14:48 alcohol benzo opiate withdrawal sx Plan: continue detox
--- NOTE | 2019-01-29 14:52 | DS ---
[facility] Detox Discharge Summary Admission Date: 01/25/19 Discharge Date: 01/29/19 - History Present History: Alcohol Dependence, Opioid Dependence, Sedative Dependence Additional Comments: 53 years old male admitted on 01/25/19 for alcohol benzo and opiate withdrawal stabilization feeling better today preferring to go to rehab today alert no acute distress denies suicidal ideation aftercare [facility] Pertinent Past History: bring in medication list and lab report to aftercare appointment - Physical Exam Results Vital Signs: Vital Signs Temperature 96.7 F L 01/29/19 13:28 Pulse Rate 74 01/29/19 13:28 Respiratory Rate 18 01/29/19 13:28 Blood Pressure 99/68 01/29/19 13:28 O2 Sat by Pulse Oximetry (%) Pertinent Admission Physical Exam Findings: alcohol benzo and opiate withdrawal sx Laboratory Last Values WBC 5.0 K/mm3 (4.0-10.0) 01/25/19 15:00 RBC 4.66 M/mm3 (4.00-5.60) 01/25/19 15:00 Hgb 13.6 GM/dL (11.7-16.9) 01/25/19 15:00 Hct 40.5 % (35.4-49) 01/25/19 15:00 MCV 86.9 fl (80-96) 01/25/19 15:00 MCH 29.2 pg (25.7-33.7) 01/25/19 15:00 MCHC 33.6 g/dl (32.0-35.9) 01/25/19 15:00 RDW 14.2 % (11.9-15.9) 01/25/19 15:00 Plt Count 272 K/MM3 (134-434) 01/25/19 15:00 MPV 7.5 fl (7.5-11.1) 01/25/19 15:00 Sodium 140 mmol/L (136-145) 01/25/19 15:00 Potassium 4.0 mmol/L (3.5-5.1) 01/25/19 15:00 Chloride 109 mmol/L (98-107) H 01/25/19 15:00 Carbon Dioxide 26 mmol/L (21-32) 01/25/19 15:00 Anion Gap 5 MMOL/L (8-16) L 01/25/19 15:00 BUN 13 mg/dL (7-18) 01/25/19 15:00 Creatinine 0.8 mg/dL (0.55-1.3) 01/25/19 15:00 Creat Clearance w eGFR 101.92 (>60) 01/25/19 15:00 Random Glucose 84 mg/dL (74-106) 01/25/19 15:00 Calcium 8.4 mg/dL (8.5-10.1) L 01/25/19 15:00 Total Bilirubin 0.2 mg/dL (0.2-1) 01/25/19 15:00 AST 15 U/L (15-37) 01/25/19 15:00 ALT 22 U/L (13-61) 01/25/19 15:00 Alkaline Phosphatase 111 U/L (45-117) 01/25/19 15:00 Total Protein 6.5 g/dl (6.4-8.2) 01/25/19 15:00 Albumin 3.4 g/dl (3.4-5.0) 01/25/19 15:00 RPR Titer Nonreactive (NONREACTIVE) 01/25/19 15:00 lab noted - Treatment Hospital Course: Detox Protocol Followed, Detoxed Safely, Responded well, Discharged Condition Good, Rehab Referral Accepted Patient has Accepted a Rehab Referral to: [facility] - Medication Discharge Medications: Ambulatory Orders Clonazepam [Klonopin] 2 mg PO BID 01/25/19 - Diagnosis (1) Alcohol dependence with withdrawal Status: Acute Qualifiers: Complication of substance-induced condition: uncomplicated Qualified Code(s ): F10.230 - Alcohol dependence with withdrawal, uncomplicated (2) Opioid dependence with withdrawal Status: Acute (3) Uncomplicated sedative, hypnotic or anxiolytic withdrawal Status: Acute (4) Nicotine dependence Status: Acute Qualifiers: Nicotine product type: cigarettes Substance use status: in withdrawal Qualified Code(s): F17.213 - Nicotine dependence, cigarettes, with withdrawal (5) Substance induced mood disorder Status: Suspected - AMA Did Patient Leave Against Medical Advice: No
[2019-01-30] MEDS ORDERED: METHADONE HCL 5 MG TABLET (FOR DETOX USE ONLY) PO ONE (06:00)
== END 2019-01-29 03:04 | disposition home or self-care (01) | DRG 773 ==
LOC: YASAS 12:39 → Y3N 15:38
PROVIDERS: ADMIT Surgery; ATTEND Surgery
PROC: HZ2ZZZZ Detoxification Services for Substance Abuse Treatment (ICD-10-PCS; principal; 2019-01-25)
DX: F10.230 Alcohol dependence with withdrawal, uncomplicated (principal); F11.23 Opioid dependence with withdrawal; F13.230 Sedative, hypnotic or anxiolytic dependence with withdrawal, uncomplicated; F14.20 Cocaine dependence, uncomplicated; F17.213 Nicotine dependence, cigarettes, with withdrawal; F19.24 Other psychoactive substance dependence with psychoactive substance-induced mood disorder; F41.9 Anxiety disorder, unspecified; M62.830 Muscle spasm of back; Z91.013 Allergy to seafood
CPT/HCPCS: 36415; 80053; 85027; 86593; J0735